=== PATIENT | female | born 1965 | race Caucasian/White ===

== ENCOUNTER 2024-07-27 18:33 | Emergency (ER) | payer OTHER, SELFPAY ==
[2024-07-27 18:39] VITALS: BP 155/86
[2024-07-27 18:57] LABS: % Basophils 0.4 % (0-2); % Eosinophils 2.7 % (0-6); % Immature Granulocytes 0.3 % (0-0.5); % Monocytes 5.3 % (1.7-9.3); % Neutrophils 70.3 % (42.2-75.2); Absolute Eosinophils 0.2 10^3/uL (0-0.7); Absolute Lymphocytes 1.5 10^3/uL (1.2-3.4); Absolute Monocytes 0.4 10^3/uL (0.1-0.6); Absolute Neutrophils 4.9 10^3/uL (1.4-6.5); Hematocrit 42.3 % (37.0-47.0); Hemoglobin 14.2 g/dL (12.0-16.0); Mean Corp Hgb Conc. 33.6 g/dL (33.0-37.0); Mean Corpuscular Hgb 26.9 pg (27.0-31.0); Mean Corpuscular Volume 80.3 fL (81.0-99.0); Mean Platelet Volume 10.6 fL (7.4-10.4); Nucleated Red Blood Cells % 0 %; Platelet Count 221 10^3/uL (130-400); Red Blood Cell Count 5.27 10^6/uL (4.20-5.40); Red Cell Dist. Width 13.5 % (11.5-14.5)
[2024-07-27 19:08] LABS: ALT (SGPT) 16 U/L (0-35); AST (SGOT) 20 U/L (14-36); Albumin 4.6 g/dl (3.5-5.0); Alkaline Phosphatase 98 U/L (38-126); Blood Urea Nitrogen 24 mg/dl (7-17); Calcium 10.8 mg/dl (8.4-10.2); Carbon Dioxide 22 mmol/L (22-30); Glucose 127 mg/dl (70-99); Total Bilirubin 0.5 mg/dl (0.2-1.3); Total Protein 7.5 g/dl (6.3-8.2); eGFR > 60.00
[2024-07-27 19:13] LABS: D-Dimer < 0.27 ug/mlFEU (0.00-0.50)
[2024-07-27 19:21] LABS: Troponin I < 0.012 ng/ml
[2024-07-27 19:52] LABS: Chloride 103 mmol/L (98-107); Potassium 3.8 mmol/L (3.5-5.1); Sodium 137 mmol/L (135-145)
--- NOTE | 2024-07-27 21:01 | ED.GENMED ---
History of Present Illness
General
Chief Complaint: Chest Pain
Source: patient and spouse
Exam Limitations: none
Time Seen by Provider: 07/27/24 21:00
History of Present Illness
History of Present Illness:
59-year-old female nontraumatic pain to the left shoulder. Has been mild for 2 days. Became continuous this morning. Continuous throughout the day. Continue with throbbing pain but worse with movement of the left shoulder and unable to move the
left shoulder secondary to pain. Also some mild pain at the upper back but she has had this for a long time. No pleuritic pain shortness of breath. Some mild upper chest pain with this.
Past History
Past History
ED Past Medical History: Hypothyroidism and Psychiatric (depression); Negative HTN, Hypercholesterolemia, IDDM or NIDDM
ED Past Surgical History: Other ([place] teeth); Negative Cardiac
Social History
Tobacco: Non-smoker
Alcohol: Occasional
Drug: None
Living: with family
Employment: Employed
Family History
Family History: CAD; Negative Early CAD or Sudden
Review of Systems
Review of Systems
All Other Systems: Not applicable
Constitutional: Denies fever
Respiratory: Denies cough or trouble breathing
ABD/GI: Reports no symptoms
Phy Exam
Physical Exam
Physical Exam:
GENERAL: Alert and oriented in no apparent distress
EYE: Orbits normal.
NECK: Supple, no significant adenopathy.
ENT: Pharynx without erythema
CARDIAC: Regular rate and rhythm without any obvious murmurs.
LUNGS: Clear breath sounds,normal
ABDOMEN: Soft, without focal tenderness or distention
NEUROLOGICAL: Alert and oriented , grossly non-focal
SKIN: Warm and dry, no rash or lesion, no discoloration, skin intact.
MUSCULOSKELETAL: No edema,no deformity.Good color. Significant point tenderness to the left anterior humerus at the biceps insertion. Mild tenderness over the acromion. Severe pain with abduction or attempted abduction of the left shoulder. No
tenderness over the scapula no swelling no rash. Good distal pulses and color
PSYCH: Normal and appropriate interaction.
Scores
Heart Score for Chest Pain Patients
STEMI patient?: No
History: Slightly or Non-Suspicious
ECG: Normal
Age: >45 - <65 years
Risk Factors: 1 or 2 Risk Factors
Troponin: </= Normal Limit
Heart Score for Chest Pain Patients: 2
Heart Score Risk: 2.5% MACE over next 6 weeks
Course
Orders/Labs/Results
Orders:
Orders
07/27/24 18:33
ECG [Electrocardiogram (*1)] Urgent
Reason for Study: Chest Pain
EKG- Treatment ONCE
07/27/24 18:46
Complete Blood Count/With Diff Urgent
Comprehensive Metabolic Panel Urgent
D-Dimer Urgent
Troponin I Urgent
07/27/24 21:14
Ketorolac [Toradol] 60 mg IM NOW STA
CXR2 [CR Chest - 2 Views ] Urgent
Comment:
Reason For Exam: Left upper anterior chest pain
07/27/24 23:33
Hydrocodone 5/APAP 325 [[place] 5/325] 1 tablet PO NOW STA
Prednisone [Deltasone] 40 mg PO NOW STA
07/27/24 23:35
Sling Left-Treatment ONCE
Abnormal Lab Results
07/27/24
18:46
MCV 80.3 L fL
(81.0-99.0)
MCH 26.9 L pg
(27.0-31.0)
MPV 10.6 H fL
(7.4-10.4)
BUN 24 H mg/dl
(7-17)
Glucose 127 H mg/dl
(70-99)
Calcium 10.8 H mg/dl
(8.4-10.2)
07/27/24 18:46
07/27/24 18:46
Vital Signs
Initial and Last Documented VS:
Initial Vital Signs
Temp Pulse Resp BP Pulse Ox
97.9 F 74 18 155/86 100
07/27/24 18:39 07/27/24 18:39 07/27/24 18:39 07/27/24 18:39 07/27/24 18:39
Last Documented Vital Signs
Temp Pulse Resp BP Pulse Ox
97.9 F 74 18 155/86 100
07/27/24 18:39 07/27/24 18:39 07/27/24 18:39 07/27/24 18:39 07/27/24 18:39
MDM/Problems Addressed
Differential Diagnosis Includes:
Continuous symptoms since early this morning with normal EKG normal troponin and an exam that is very consistent with a musculoskeletal etiology. D-dimer negative. Highly doubt pulmonary emboli or dissection. Chest x-ray unchanged. Symptoms are
very orthopedic in nature and most consistent with a biceps tendinitis. Patient tries to avoid anti-inflammatories with her blood pressure medication. Short course of steroids pain management and orthopedic follow-up
*Radiology
Radiology exam reviewed: preliminary read by ED provider (Negative) and radiology read reviewed (No change)
*Pulse Oximetry
Patient hypoxic: no
*EKG
Interpreted by ED Provider?: Yes
Interpretation: normal
Comparison EKG: no changes
Heart Rate: 72
Rate: normal
Rhythm: sinus
[place]: normal axis
Interval: normal interval
QRS Pattern: normal QRS
Ischemia: no ischemia
*Critical Care Note
Total Time (30-74mins, 75-104mins- exclusive of procedures): Not Applicable
Update Note
Update Note:
Patient is upper chest pain with this has been continuous through the day. Not just the previous 30 minutes.
ED Attending Note
-
Portions of this chart may have been created with voice recognition software.� Occasional wrong word or��sound alike� substitutions may have occurred due to the inherent limitations of voice recognition software.
Discharge Plan
Departure
Patient Disposition: Home (Routine Discharge)
Date of Disposition: 07/27/24
Time of Disposition: 23:38
Patient with high blood pressure during this ER visit?: Yes
Discharge Problem:
Left shoulder pain, Suspect biceps tendinitis, Left upper chest pain
Instructions: Chest pain in adults - ED discharge instructions, Shoulder pain - ED discharge instructions, BLOOD PRESSURE
Prescriptions:
New
hydrocodone-acetaminophen 5-325 mg tablet
1 tab PO Q6H PRN (Reason: Pain) Qty: 7 0RF
prednisone 10 mg tablet
10 mg PO DAILY Qty: 20 0RF
Rx Instructions:
4 tablets day 1. Then 1 less tablet every other day until gone
No Action
multivitamin with folic acid [Tab-A-Richard] 1 TABLET tablet
1 tab PO DAILY
Referrals:
Ani Montalvo DO [Family Provider] -
Alex Oneal MD [Active] - Follow up in 2-3 days
Activity Restrictions/Additional Instructions:
Tylenol for milder pain
Vicodin for increased pain.
The prednisone and Vicodin prescription was sent to your pharmacy
Take the arm out of the sling 5-6 times per day for prevention of frozen shoulder and swelling the arm around
Call the orthopedist in the morning
Interventions
Interventions:
*Risk Screen - Suicide Last Done: 07/27/24 18:39
*General Assessment Last Done: 07/27/24 18:39
*Neglect/Abuse Screening Last Done: 07/27/24 18:39
*ED COVID-19 Vaccine History Last Done: 07/27/24 18:39
Discharge Date and Time
Print Language: MICRONESIAN
[2024-07-27 21:03] VITALS: BP 162/87
[2024-07-27 22:00] VITALS: BP 134/64
[2024-07-27] MEDS: TORADOL 60 MG IM (22:22)
[2024-07-28] MEDS: NORCO 5/325 1 TABLET PO (00:33)
[2024-07-28] MEDS: DELTASONE 40 MG PO (00:34)
[2024-07-28 00:36] VITALS: BP 147/88
== END 2024-07-28 00:45 | disposition home or self-care (01) ==
LOC: EMR 18:33
PROVIDERS: Emergency Medicine; EMERGENCY PHYSICIAN Emergency Medicine; FAMILY PHYSICIAN Family Medicine
DX: M25.512 Pain in left shoulder (principal); R07.89 Other chest pain; E03.9 Hypothyroidism, unspecified
CPT/HCPCS: 99285; 96372; 71046; 80053; 84484; 85025; 85379; 93005

== ENCOUNTER 2024-12-14 11:12 | Emergency (ER) | payer SELFPAY ==
[2024-12-14] VITALS (21 sets, daily range): BP systolic 106–150; BP diastolic 66–123; BMI 28.4
--- NOTE | 2024-12-14 11:16 | ED.GENMED ---
History of Present Illness
General
Chief Complaint: Musculo-Skeletal Complaint
Time Seen by Provider: 12/14/24 11:16
History of Present Illness
History of Present Illness:
PAST MEDICAL HISTORY AND REVIEW OF OLD RECORDS
- The patient has history of migraines. She has had surgery in the left hand in the past. I reviewed records, she was seen here in 2016 with left shoulder pain.
Note:
CHIEF COMPLAINT(S)
Injury to the left wrist following a fall.
HISTORY OF PRESENT ILLNESS
The patient is a 59-year-old female who presented to the emergency room after tripping over a tree stump and falling while walking through nature with a group from a day camp. Following the fall, the patient experienced pain in the left wrist. The
patient denies any head trauma, neck pain, or injuries to the right arm or legs. No lacerations or cuts were observed on the wrist. An intravenous line was established, and the patient received 75 micrograms of fentanyl for pain relief, which was
effective until the patient began moving.
REVIEW OF SYSTEMS
- Musculoskeletal: Injury to the left wrist with associated pain. No other musculoskeletal complaints reported.
- Neurological: Denies head trauma or neck pain.
- Gastrointestinal: Denies abdominal pain.
PHYSICAL EXAM
General: Alert, and appears uncomfortable
Skin: Warm, dry, no lacerations on the left wrist.
Head: Normocephalic, atraumatic.
Neck: Supple, trachea midline. No midline C-spine tenderness
Eyes, Ears, Nose, Mouth and Throat: Oral mucosa moist.
Cardiovascular: Normal peripheral perfusion, no edema.
Respiratory: Respirations are non-labored.
Gastrointestinal: Abdomen nondistended.
Back: Normal range of motion, normal alignment.
Musculoskeletal: Normal range of motion in legs; left wrist deformity noted the distal radius with no associated laceration
Neurological: Alert and oriented to person, place, time, and situation, no focal neurological deficit observed.
Psychiatric: Cooperative, appropriate mood & affect.
PLAN
The patient will undergo an X-ray of the left wrist to assess for fractures or other injuries.
DIFFERENTIAL DIAGNOSIS
The Differential Diagnosis includes, in no particular order and is not limited to:
1. Wrist fracture
2. Wrist sprain
3. Contusion of soft tissue
4. Tendon injury
5. Ligament injury
6. Joint dislocation
7. Arthritis exacerbation
8. Carpal tunnel syndrome
9. Reflex sympathetic dystrophy
10. Bone bruise
RADIOLOGY
- Left wrist x-ray obtained which shows volarly displaced angulated distal radius fracture
- Post reduction imaging shows improved alignment
UPDATE
-SUMMARY OF ENCOUNTER
The patient, a 59-year-old female, presented to the emergency department following a fall that resulted in an injury to the left wrist. Upon examination and imaging, a fracture was confirmed. The fracture was described as being displaced in the
opposite direction compared to a typical upward fracture, indicating the need for alignment. Plans were discussed to inject lidocaine directly into the area for pain management before attempting to realign the fracture.
PLAN
Procedural sedation with closed reduction
MEDICATION RECONCILIATION
1. The patient was given Dilaudid in the ED and then a prescription for Percocet
MEDICAL DECISION MAKING
- Number and Complexity of Problems Addressed: Acute wrist fracture.
- Data:
- Category 1: Imaging was conducted and confirmed a fracture of the left wrist.
- Risk: The patient was considered for sedation for pain management during the procedure to realign the fracture.
DIAGNOSIS
1. Displaced fracture of the left wrist (ICD-10: S62.002A)
The patient was sedated and reduced successfully. I notified Dr. Manuel and she is to follow-up with Ortho such as Dr. Jim. I also sent a prescription for narcotic analgesia. The patient does have some ongoing pain after reduction and
Dilaudid was then given.
Past History
Past History
ED Past Medical History: Hypothyroidism and Psychiatric (depression); Negative HTN, Hypercholesterolemia, IDDM or NIDDM
ED Past Surgical History: Other ([place] teeth); Negative Cardiac
Social History
Tobacco: Non-smoker
Alcohol: Occasional
Drug: None
Living: with family
Employment: Employed
Family History
Family History: CAD; Negative Early CAD or Sudden
Phy Exam
Physical Exam
Physical Exam:
See HPI
Course
Orders/Labs/Results
Orders:
Orders
12/14/24 11:16
CR Wrist - Left Min 3 Views Urgent
Comment:
Reason For Exam: trauma
12/14/24 12:31
Propofol [Diprivan] 20 ml .ROUTE .STK-MED
12/14/24 12:55
CR Wrist - Left Min 2 Views Urgent
Comment:
Reason For Exam: post reduction; portable please
12/14/24 13:17
HYDROmorphone [Dilaudid] 1 mg IV NOW STA
Ondansetron Injectable [Zofran] 4 mg IV NOW STA
Vital Signs
Initial and Last Documented VS:
Initial Vital Signs
Temp Pulse Resp BP Pulse Ox
36.6 C 89 18 139/69 96
12/14/24 11:16 12/14/24 11:16 12/14/24 11:16 12/14/24 11:16 12/14/24 11:16
Last Documented Vital Signs
Temp Pulse Resp BP Pulse Ox
37.0 C 78 12 134/68 100
12/14/24 13:27 12/14/24 13:27 12/14/24 13:27 12/14/24 13:27 12/14/24 13:27
Procedures
Moderate Sedation
ASA Risk Score: Class II
Chart and allergies reviewed: Yes
Consent for anesthesia obtained: Yes
Time out completed (validating right patient & procedure): Yes
Moderate Sedation Start Time(when first medication is given): 12:46
History of difficult intubation: No
Airway free of obstruction: Yes
Patient has a gag reflex: Yes
Patient is able to open mouth: Yes
Patient has no dentures: Yes
Patient has no loose teeth: Yes
Medication administered by Provider during Moderate Sedation: IV Propofol (mg)
Total dose administered: 70
Time drug administered: 12:46
Moderate Sedation Procedure End Time: 12:57
Joint/Fracture Reduction
Left Volar Wrist:
Indication for procedure:: Displaced angulated distal rad fx
Procedure completed by: Ga, Dr. Valdez
Consent form signed: Yes
Joint reduced: with anesthesia sedation
Injury was: closed
Further treatement: needs further treatment
Post reduction exam: stable
Capillary Refill: normal
Normal distal neurovascular exam?: Yes
*Pulse Oximetry
Patient hypoxic: no
*Critical Care Note
Total Time (30-74mins, 75-104mins- exclusive of procedures): Not Applicable
ED Attending Note
-
Portions of this chart may have been created with voice recognition software.� Occasional wrong word or��sound alike� substitutions may have occurred due to the inherent limitations of voice recognition software.
Discharge Plan
Departure
Patient Disposition: Home (Routine Discharge)
Date of Disposition: 12/14/24
Time of Disposition: 13:17
Patient with high blood pressure during this ER visit?: Yes
Discharge Problem:
Distal radius fracture, left
Instructions: Wrist Fracture (DC), Splint Care, MODERATE SEDATION ADULT, BLOOD PRESSURE
Prescriptions:
New
oxycodone-acetaminophen [Percocet] 5-325 mg tablet
1 - 2 tab PO Q6HPRN PRN (Reason: pain) Qty: 14 0RF
No Action
multivitamin with folic acid [Tab-A-Richard] 1 TABLET tablet
1 tab PO DAILY
hydrocodone-acetaminophen 5-325 mg tablet
1 tab PO Q6H PRN (Reason: Pain) Qty: 7 0RF
prednisone 10 mg tablet
10 mg PO DAILY Qty: 20 0RF
Rx Instructions:
4 tablets day 1. Then 1 less tablet every other day until gone
Referrals:
Ani Montalvo DO [Family Provider, Family Practice]
Mayito Jim MD [Active, Orthopedics]
Activity Restrictions/Additional Instructions:
I recommend 3-4 [id number] ibuprofen (Motrin) every 8 hours with food for a few days. Return here if worse. For more severe pain you can take Percocet. If take Percocet I recommend to the like MiraLAX to prevent constipation. Call
[facility] for follow-up. No driving today.
Interventions
Interventions:
*Risk Screen - Suicide Last Done: 12/14/24 11:16
*General Assessment Last Done: 12/14/24 11:16
*Neglect/Abuse Screening Last Done: 12/14/24 11:16
*ED- Fall Risk Assessment Last Done: 12/14/24 11:16
*ED COVID-19 Vaccine History Last Done: 12/14/24 11:16
ED-Musculoskeletal Assessment Last Done: 12/14/24 11:16
Discharge Date and Time
Print Language: TELUGU
[2024-12-14] MEDS: ZOFRAN 4 MG IV (13:23)
[2024-12-14] MEDS: DILAUDID 1 MG IV (13:23)
== END 2024-12-14 14:23 | disposition home or self-care (01) ==
LOC: EMR 11:12
PROVIDERS: EMERGENCY PHYSICIAN Emergency Medicine; FAMILY PHYSICIAN Family Medicine
DX: S52.592A Other fractures of lower end of left radius, initial encounter for closed fracture (principal); S52.612A Displaced fracture of left ulna styloid process, initial encounter for closed fracture; W18.09XA Striking against other object with subsequent fall, initial encounter; E03.9 Hypothyroidism, unspecified
CPT/HCPCS: 25605; 99152; 96374; 96375; 99285; 73100; 73110

== ENCOUNTER 2024-12-15 11:29 | Emergency (ER) | payer SELFPAY ==
[2024-12-15 11:34] VITALS: BP 134/81
--- NOTE | 2024-12-15 14:10 | ED.GENMED ---
History of Present Illness
General
Chief Complaint: Musculo-Skeletal Complaint
Time Seen by Provider: 12/15/24 13:54
History of Present Illness
History of Present Illness:
59-year-old female presents the emergency department for continued left wrist and left elbow pain, was seen this emergency department yesterday for a distal radius fracture and underwent closed reduction successfully. Reports pain has worsened
since that time. Denies distal paresthesias. Her follow-up with orthopedics is in 2 days
Past History
Past History
ED Past Medical History: Hypothyroidism and Psychiatric (depression); Negative HTN, Hypercholesterolemia, IDDM or NIDDM
ED Past Surgical History: Other ([place] teeth); Negative Cardiac
Social History
Tobacco: Non-smoker
Alcohol: Occasional
Drug: None
Living: with family
Employment: Employed
Family History
Family History: CAD; Negative Early CAD or Sudden
Review of Systems
Review of Systems
Allergies reviewed?: Yes
All Other Systems: ROS reviewed and negative except as documented in HPI and ROS
Phy Exam
Physical Exam
Physical Exam:
GEN: Well appearing, NAD, WDWN
HEENT: Oral mucosa moist, no scleral icterus
Cardiac: Regular rate
Lung: No respiratory distress, no tachypnea
MSK: Prior splint taken down, extremity assessed with no signs of compartment firmness, range of motion not assessed due to known fracture. No fracture blisters or open wounds
Skin: Good color, no pallor or jaundice, no rashes
Neuro: AO x3, moves all extremities freely
Psych: Calm, cooperative
Course
Vital Signs
Initial and Last Documented VS:
Initial Vital Signs
Temp Pulse Resp BP Pulse Ox
98.8 F 74 17 134/81 99
12/15/24 11:34 12/15/24 11:34 12/15/24 11:34 12/15/24 11:34 12/15/24 11:34
Last Documented Vital Signs
Temp Pulse Resp BP Pulse Ox
98.8 F 74 17 134/81 99
12/15/24 11:34 12/15/24 11:34 12/15/24 11:34 12/15/24 11:34 12/15/24 14:11
MDM/Problems Addressed
MDM/Problems Addressed:
Splint reapplied after examination, no evidence for compartment syndrome or neurovascular compromise, no open wounds or signs of infection
*Pulse Oximetry
SaO2: 99
Oxygen Mode of Delivery: Room air
Patient hypoxic: no
*Critical Care Note
Total Time (30-74mins, 75-104mins- exclusive of procedures): Not Applicable
ED Attending Note
-
Portions of this chart may have been created with voice recognition software.� Occasional wrong word or��sound alike� substitutions may have occurred due to the inherent limitations of voice recognition software.
Discharge Plan
Departure
Patient Disposition: Home (Routine Discharge)
Date of Disposition: 12/15/24
Time of Disposition: 14:11
Patient with high blood pressure during this ER visit?: No
Discharge Problem:
Distal radius fracture, left
Prescriptions:
No Action
multivitamin with folic acid [Tab-A-Richard] 1 TABLET tablet
1 tab PO DAILY
hydrocodone-acetaminophen 5-325 mg tablet
1 tab PO Q6H PRN (Reason: Pain) Qty: 7 0RF
prednisone 10 mg tablet
10 mg PO DAILY Qty: 20 0RF
Rx Instructions:
4 tablets day 1. Then 1 less tablet every other day until gone
oxycodone-acetaminophen [Percocet] 5-325 mg tablet
1 - 2 tab PO Q6HPRN PRN (Reason: pain) Qty: 14 0RF
Referrals:
Ani Montalvo, DO [Family Provider, Family Practice]
Activity Restrictions/Additional Instructions:
Your arm looks as expected
You may take ibuprofen in addition to the pain medicine
Follow up with Orthopedics as planned
Interventions
Interventions:
*Risk Screen - Suicide Last Done: 12/15/24 11:34
*General Assessment Last Done: 12/15/24 11:34
*Neglect/Abuse Screening Last Done: 12/15/24 11:34
*ED- Fall Risk Assessment Last Done: 12/15/24 12:22
*ED COVID-19 Vaccine History Last Done: 12/15/24 11:34
*Nursing Disposition Last Done: 12/15/24 14:23
ED-Musculoskeletal Assessment Last Done: 12/15/24 12:22
Discharge Date and Time
Discharge Date/Time: 12/15/24 14:23
Print Language: INDONESIAN
== END 2024-12-15 14:23 | disposition home or self-care (01) ==
LOC: EMR 11:29
PROVIDERS: EMERGENCY PHYSICIAN Emergency Medicine; FAMILY PHYSICIAN Family Medicine
DX: S52.502A Unspecified fracture of the lower end of left radius, initial encounter for closed fracture (principal); X58.XXXA Exposure to other specified factors, initial encounter; E03.9 Hypothyroidism, unspecified; Z46.89 Encounter for fitting and adjustment of other specified devices
CPT/HCPCS: 99283; 29125

== ENCOUNTER 2024-12-22 06:14 | Day surgery (SDC) | payer OTHER, SELFPAY ==
[2024-12-21 08:50] LABS: Hematocrit 42.6 % (37.0-47.0); Hemoglobin 14.0 g/dL (12.0-16.0); Mean Corp Hgb Conc. 32.9 g/dL (33.0-37.0); Mean Corpuscular Volume 81.0 fL (81.0-99.0); Nucleated Red Blood Cells % 0 %; Platelet Count 222 10^3/uL (130-400); Red Cell Dist. Width 13.6 % (11.5-14.5)
[2024-12-21 09:17] LABS: Blood Urea Nitrogen 25 mg/dl (7-17); Calcium 10.9 mg/dl (8.4-10.2); Carbon Dioxide 27 mmol/L (22-30); Chloride 106 mmol/L (98-107); Glucose 86 mg/dl (70-99); Potassium 4.3 mmol/L (3.5-5.1); Sodium 141 mmol/L (135-145); eGFR > 60.00
[2024-12-21 14:18] VITALS: BMI 27.0
[2024-12-22] VITALS (11 sets, daily range): BP systolic 106–147; BP diastolic 68–85; BMI 27.0
[2024-12-22] MEDS: TYLENOL 1000 MG PO (10:58)
[2024-12-22] MEDS: NORMOSOL-R/PLASMALYTE-A 1000 IV (10:58)
[2024-12-22] MEDS: SUBLIMAZE 50 MCG IV ×2 (12:44→12:56)
[2024-12-22] MEDS: DILAUDID 0.5 MG IV ×2 (13:27→13:42)
[2024-12-22] MEDS: ROXICODONE 5 MG PO (14:30)
== END 2024-12-22 15:10 | disposition home or self-care (01) ==
LOC: SDS 06:14
PROVIDERS: ATTENDING PHYSICIAN Orthopaedic Surgery; FAMILY PHYSICIAN Family Medicine
DX: S52.502A Unspecified fracture of the lower end of left radius, initial encounter for closed fracture (principal); W19.XXXA Unspecified fall, initial encounter
CPT/HCPCS: 25608; C1713; 36415; 80048; 85025; 93005